=== PATIENT | female | born 1940 | race Caucasian/White ===

== ENCOUNTER → 2020-06-26 14:55 | Outpatient (CLI) | payer MEDICARE, SELFPAY ==
--- NOTE | ~2020-06-26 | MM_ITS ---
EXAMINATION: MM screening triny BI w petey HISTORY: Screening TECHNIQUE: Craniocaudal and mediolateral oblique 3-D tomosynthesis images were obtained and synthetic 2-D images were generated. CAD analysis was submitted and interpreted. COMPARISON: Comparison to multiple prior studies sequentially, with oldest reviewed study dated 07/11. BREAST PARENCHYMAL COMPOSITION: There are scattered areas of fibroglandular density. FINDINGS: There is no evidence of suspicious mass, calcification, or architectural distortion to sugg est malignancy in either breast. There has been no suspicious interval change. IMPRESSION: 1. No mammographic evidence of malignancy. 2. Recommend routine screening mammography in one year. BI-RADS Category 1: Negative Reviewed, dictated and finalized at location A.
== END ==
PROVIDERS: PCP Internal Medicine; Visit Provider Internal Medicine
DX: Z12.31 Encounter for screening mammogram for malignant neoplasm of breast (principal)
CPT/HCPCS: 77063; 77067

== ENCOUNTER → 2021-09-13 08:10 | Outpatient (CLI) | payer MEDICARE, SELFPAY ==
--- NOTE | ~2021-09-13 | XR_ITS ---
EXAMINATION: XR chest 2V 09/13/2021 08:25 INDICATION: Cough for year PROCEDURE: 2 view chest COMPARISON: 12/04/2018 FINDINGS: The lungs are clear. The cardiomediastinal silhouette is within normal limits. There are no pleural effusions. There is no pneumothorax suspected. The lungs are hyperinflated which is cons istent with, but not diagnostic of chronic obstructive pulmonary disease. IMPRESSION: 1: NO ACUTE CARDIOPULMONARY DISEASE. Reviewed, dictated and finalized at location A.
== END ==
PROVIDERS: PCP Internal Medicine; Visit Provider Internal Medicine
DX: R05.9 Cough, unspecified (principal)
CPT/HCPCS: 71046

== ENCOUNTER → 2021-10-29 10:37 | Outpatient (CLI) | payer MEDICARE, SELFPAY ==
--- NOTE | ~2021-10-29 | MM_ITS ---
EXAMINATION: MM screening [facility] BI w petey HISTORY: Screening mammogram TECHNIQUE: Craniocaudal and mediolateral oblique 3-D tomosynthesis images were obtained and synthetic 2-D images were generated. CAD analysis was submitted and interpreted. COMPARISON: 06/26/2020, 01/02/2019, 10/16/2017 BREAST PARENCHYMAL COMPOSITION: There are scattered areas of fibroglandular density. FINDINGS: There is no evidence of suspicious mass, calcification, or architectural distortion to sugg est malignancy in either breast. There has been no suspicious interval change. IMPRESSION: 1. No mammographic evidence of malignancy. 2. Recommend routine screening mammography in one year. BI-RADS Category 1: Negative Reviewed, dictated and finalized at location A.
== END ==
PROVIDERS: PCP Internal Medicine; Visit Provider Internal Medicine
DX: Z12.31 Encounter for screening mammogram for malignant neoplasm of breast (principal)
CPT/HCPCS: 77063; 77067

== ENCOUNTER → 2022-05-20 12:27 | Outpatient (CLI) | payer MEDICARE, SELFPAY ==
--- NOTE | ~2022-05-20 | DEXA_ITS ---
Bone Density Report Name: KARTHIK YOUSSEF Age: 82 Sex: Female Ethnicity: White Date of : 1940 Indication: postmenopausal; screening for osteoporosis; rheumatoid arthritis; Referring Provider: CHRISTOS, DEIDRE Study: Bone densitometry was performed. Exam Date: May 20, 2022 Accession number: [id number] Bone Density: Region BMD T-score Z-score Classification AP Spine (L1, L2, L3) 0.868 -1.4 1.4 Osteopenia Femoral Neck (Left) 0.715 -1.2 1.2 Osteopenia Total Hip (Left) 0.817 -1.0 1.2 Normal Femoral Neck (Right) 0.643 -1.9 0.6 Osteopenia Total Hip (Right) 0.816 -1.0 1.2 Normal Total Hip Mean 0.816 -1.0 1.2 Normal World Health Organization criteria for BMD impression classify patients as: Normal (T-score at or above -1.0), Osteopenia (T-score between -1.0 and -2.5), or Osteoporosis (T-score at or below -2.5). 10-year Fracture Risk: FRAX not reported because: Treated for osteoporosis Clinical Information Provided by Patient: Has rheumatoid arthritis Is being treated for osteoporosis Has used the following medications: Fosamax (i.e. alendronate), Vitamin D, Calcium, LEVOTHYROXINE Patient maximum height was 60.0 Menopause Age: 59 Drinks caffeinated beverages Onset of menses at age 15 Number of children 3 Impression: The patient has low bone mass, based on the Right Femoral Neck T-score. Discussion: It is important to ask patients whether they are taking their medications and to encourage continued and appropriate compliance with their osteoporosis therapies to reduce fracture risk. It is also important to review their risk factors and encourage appropriate calcium and vitamin D intakes, exercise, fall prevention and other lifestyle measures. Follow-Up: Consider a repeat BMD and Vertebral Fracture Assessment (VFA) exam in 2 years or sooner if medically necessary, to reassess this patient's status. Reported by: KAMILLE on 05/20/2022 1:41:00 PM. Reviewed, dictated and finalized at location A. YESSI
== END ==
PROVIDERS: PCP Internal Medicine; Visit Provider Internal Medicine
DX: M81.0 Age-related osteoporosis without current pathological fracture (principal); M85.88 Other specified disorders of bone density and structure, other site; M85.852 Other specified disorders of bone density and structure, left thigh; M85.851 Other specified disorders of bone density and structure, right thigh
CPT/HCPCS: 77080

== ENCOUNTER → 2023-04-26 10:21 | Outpatient (CLI) | payer MEDICARE, SELFPAY ==
--- NOTE | ~2023-04-26 | XR_ITS ---
EXAMINATION: XR lumbar spine 2-3V DATE: 04/26/2023 10:44 INDICATION: Chronic back pain. TECHNIQUE: 3 views of lumbar spine were obtained. COMPARISON: Lumbar spine radiographs 03/05/2014 FINDINGS: There is 16 degrees levoscoliosis of thoracolumbar spine. Vertebral body heights are normal . There is mildly decreased disc height at L1-L2, moderately decreased disc height at L2-L3, severely decreased disc height at L3-L4, and moderately decreased disc height at L5-S1. 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 IMPRESSION: 1. Severe lumbar spondylosis, worsened from 03/05/2014. 2. Thoracolumbar levoscoliosis. Reviewed, dictated and finalized at location E. E MINER
--- NOTE | ~2023-04-26 | XR_ITS ---
AP and lateral views of the right hip Clinical history: Pain Findings: No acute fracture or dislocation is seen. Osseous alignment is anatomic. The right hip join t space is preserved. Soft tissues are unremarkable. Impression: No significant abnormality is seen. Reviewed, dictated and finalized at location . TZ MINER Impression: No significant abnormality is seen.
== END ==
PROVIDERS: PCP Internal Medicine; Visit Provider Internal Medicine
DX: M43.06 Spondylolysis, lumbar region (principal); M41.85 Other forms of scoliosis, thoracolumbar region; G89.29 Other chronic pain
CPT/HCPCS: 72100; 73502

== ENCOUNTER 2024-08-12 13:26 | Emergency (ER) | payer MEDICARE, SELFPAY ==
--- NOTE | 2024-08-12 13:31 | ED.FALL ---
HPI - Fall General Chief Complaint: Fall Stated Complaint: fall/head injury Time Seen by Provider: 08/12/24 13:30 Source: patient Mode of arrival: ambulatory Limitations: no limitations History of Present Illness HPI Narrative: Patient is an 84-year-old female who presents with fall and head injury. Patient states she was holding a gal of water when she lost her balance and fell backwards hitting her butt and then her head on the concrete floor of the garage. Patient states she feels an indentation on the back of her head. Denies any vision changes, loss of consciousness, numbness, tingling or weakness to extremities. Patient is not on a blood thinner only an aspirin. Patient has no retrograde amnesia, vomiting, raccoon eyes or bleeding from nose. Related Data Home Medications ?Medication ?Instructions ?Recorded ?Confirmed ?Last Taken ?Type alendronate 70 mg tablet mg PO 08/12/24 Unknown History amlodipine 5 mg tablet mg 08/12/24 Unknown History aspirin 81 mg tablet,delayed 81 mg PO DAILY 08/12/24 Unknown History release (Adult Low Dose Aspirin) atorvastatin 40 mg tablet mg 08/12/24 Unknown History folic acid 1 mg tablet 08/12/24 Unknown History hydroxychloroquine 200 mg tablet mg PO 08/12/24 Unknown History levothyroxine 88 mcg tablet mcg 08/12/24 Unknown History losartan 100 mg tablet mg 08/12/24 Unknown History methotrexate sodium 2.5 mg tablet mg 08/12/24 Unknown History Allergies Allergy/AdvReac Type Severity Reaction Status Date / Time No Known Allergies Allergy Unverified 08/12/24 13:41 Review of Systems Review of Systems: All systems reviewed & are unremarkable except as noted in HPI and below Constitutional: Constitutional: Denies body ache(s), Denies chills, Denies fatigue, Denies fever(s), Denies headache(s), Denies malaise and Denies weakness Eyes: Eyes: Denies blurry vision, Denies irritation and Denies loss of vision ENT: Denies otalgia, Denies headache(s), Denies nasal discharge, Denies sinus pain and Denies sore throat Cardiovascular: Cardiovascular: Denies chest pain, Denies irregular heart rhythm and Denies dyspnea Respiratory: Respiratory: Denies dyspnea Gastrointestinal: Gastrointestinal: Denies abdominal pain, Denies melena, Denies hematochezia, Denies diarrhea, Denies nausea and Denies vomiting Musculoskeletal: Musculoskeletal: Denies back pain, Denies myalgias, Denies arthralgias and Reports other (skull indentation) Integumentary/Breasts: Skin/Breast: Denies pruritus and Denies rash Neurologic: Denies headache(s), Denies loss of vision and Denies weakness Psychiatric: Psychiatric: Reports no additional psychiatric complaints Endocrine: Endocrine: Denies fatigue PMFSH Comments At time of signature, agree with nursing past medical, surgical, social and family history. There is no relevant family history pertinent to the presenting complaint. Exam Const: General: cooperative, healthy appearing, comfortable, no acute distress and well nourished Nutritional Appearance: well nourished Orientation/consciousness: patient oriented x3 Limitations: no limitations HENMT: Head: normocephalic, palpable skull fracture left parietal, no raccoon eyes, scalp tenderness and No periorbital ecchymosis Head images:  1. roughly 3 cm circular area of indentation and pain on palpation. Are is soft and sunken in. Ears: hearing grossly normal bilaterally, external ears normal and TM's normal bilaterally Face/Nose/Sinus: Normal external nose present, Normal nares present, Normal nasal mucous membranes and turbinates present, normal facial exam and face symmetric Face and sinus: normal facial exam and face symmetric Mouth: Yes lip normal Eyes: General: appearance normal, both eyes and all related structures Alignment and Position: alignment normal and position normal Periorbital: periorbital findings normal Eyelids: eyelids normal Pupils: Equal, round and reactive pupils present EOM: EOMs intact bilaterally Neck: Neck: normal visual inspection, full ROM and supple Chest: Chest palpation & inspection: normal inspection of the chest Resp: Effort & Inspection: normal respiratory effort and able to speak in complete sentences Auscultation: clear to auscultation bilaterally Cardio: Rate: regular rate Rhythm: regular rhythm Heart sounds: S1 normal heart sound present and S2 normal heart sound present GI: Inspection: normal to inspection Skin: General skin exam: normal color and no rashes or lesions noted Neuro: General: patient oriented x3 and moves all extremities Cranial nerves: Yes Equal, round and reactive pupils present Cognition (Neuro): normal cognition Speech: normal speech Gait exam (Neuro): Normal gait present Motor exam (neuro): 5/5 motor strength present throughout, Normal motor muscle tone present throughout and Motor abnormalities not present Sensory Exam: normal sensation Extrem: General: normal to inspection, full ROM and no edema Psych: Appearance: grossly normal and well kempt Mental Status: mental status grossly normal Speech and movement: Normal speech and movement present Affect: normal affect Attitude: cooperative Thought process: Normal thought process present Course Course Emergency Course: Patient being transferred to [facility] for further workup and evaluation. Patient requiring head CT due to mechanism of action, physical exam and age. Portions of this record may have been created with voice recognition software Level of Care: Express Care Visit Vital Signs Vital signs: Vital Signs Temperature 36.8 C 08/12/24 13:36 Pulse Rate 83 08/12/24 13:36 Respiratory Rate 16 08/12/24 13:36 Blood Pressure 156/61 H 08/12/24 13:36 Pulse Oximetry 100 08/12/24 13:36 Temperature 36.8 C 08/12/24 13:36 Pulse Rate 83 08/12/24 13:36 Respiratory Rate 16 08/12/24 13:36 Blood Pressure 156/61 H 08/12/24 13:36 Pulse Oximetry 100 08/12/24 13:36 Reviewed Transfer Transfered to: [facility] Transportation: Other (Private auto, family driving) Transfer rationale: Patient being transferred to [facility] for further workup and evaluation. Patient requiring head CT due to mechanism of action, physical exam and age. Accepting physician: Marie POMPA - Fall MDM Narrative Medical decision making narrative: Patient being transferred to [facility] for further workup and evaluation. Patient requiring head CT due to mechanism of action, physical exam and age. Differential Diagnosis Differential diagnosis: Likely compression fracture, concussion without loss of consciousness and other (Skull fracture) Discharge Plan Discharge Clinical Impression: Fall, Head injury Patient Disposition: Acute Care Hospital Condition: Stable Patient Language: Belarusian Prescriptions: No Action atorvastatin 40 mg tablet alendronate 70 mg tablet PO amlodipine 5 mg tablet levothyroxine 88 mcg tablet methotrexate sodium 2.5 mg tablet folic acid 1 mg tablet hydroxychloroquine 200 mg tablet PO losartan 100 mg tablet aspirin [Adult Low Dose Aspirin] 81 mg tablet,delayed release (DR/EC) 81 mg PO DAILY Follow-up/Referrals: King,MD Sony [Primary Care Provider] - Time of Disposition: 14:04
[2024-08-12 13:36] VITALS: BP 156/61; PULSE 83; RESP 16; TEMP 36.8; O2SAT 100
== END 2024-08-12 13:52 | disposition short-term general hospital (02) ==
LOC: EXPCOLL 13:30
PROVIDERS: Emergency Provider Nurse Practitioner Family; PCP Internal Medicine
DX: S09.90XA Unspecified injury of head, initial encounter (principal); W19.XXXA Unspecified fall, initial encounter; I10 Essential (primary) hypertension; E78.00 Pure hypercholesterolemia, unspecified; M06.9 Rheumatoid arthritis, unspecified; E03.9 Hypothyroidism, unspecified
CPT/HCPCS: 99212; G0463

== ENCOUNTER 2024-11-12 13:06 | Outpatient (CLI) | payer MEDICARE, SELFPAY ==
--- NOTE | ~2024-11-12 | DEXA_ITS ---
Bone Density Report Name: KARTHIK YOUSSEF Age: 84 Sex: Female Ethnicity: White Date of : 1940 Indication: monitoring treatment; parental hip fracture; rheumatoid arthritis; Referring Provider: CHRISTOS, DEIDRE Study: Bone densitometry was performed. Exam Date: November 12, 2024 Accession number: [id number] Bone Density: Region BMD T-score Z-score Classification AP Spine(L1-L4) 0.950 -0.9 2.0 Normal Femoral Neck (Left) 0.654 -1.8 0.8 Osteopenia Total Hip (Left) 0.790 -1.2 1.1 Osteopenia Femoral Neck (Right) 0.652 -1.8 0.7 Osteopenia Total Hip (Right) 0.792 -1.2 1.1 Osteopenia Total Hip Mean 0.791 -1.2 1.1 Osteopenia World Health Organization criteria for BMD impression classify patients as: Normal (T-score at or above -1.0), Osteopenia (T-score between -1.0 and -2.5), or Osteoporosis (T-score at or below -2.5). 10-year Fracture Risk: FRAX not reported because: Treated for osteoporosis Previous Exams: -- Region Exam Age BMD T-score BMD Change BMD Change Date g/cm2 vs Baseline vs Previous -- Total Hip(Left) 11/12/2024 84 0.790 -1.2 -3.2% -3.2% 05/20/2022 82 0.817 -1.0 Total Hip(Right) 11/12/2024 84 0.792 -1.2 -2.9% -2.9% 05/20/2022 82 0.816 -1.0 -- *Denotes significance at 95% confidence level, LSC for Total Hip = 0.027 g/cm2 Clinical Information Provided by Patient: Parent has had a hip fracture Has rheumatoid arthritis Is being treated for osteoporosis Has used the following medications: Fosamax (i.e. alendronate), Vitamin D, Calcium Patient maximum height was 60 Menopause Age: 59 No regular weight bearing exercise Drinks caffeinated beverages Onset of menses at age 15 Number of children 3 Impression: The patient has low bone mass, based on the Left Femoral Neck T-score. The patient has risk factors, including: parental hip fracture. No significant bone loss was observed. Discussion: PATIENT UNDER TREATMENT WITH NO SIGNIFICANT BMD LOSS SINCE LAST EXAM. In an untreated patient, BMD typically declines with age. A lack of decline or gain is usually a sign that treatment is efficacious and fracture risk is reduced. It is important to ask patients whether they are taking their medications and to encourage continued and appropriate compliance with their osteoporosis therapies to reduce fracture risk. It is also important to review their risk factors and encourage appropriate calcium and vitamin D intakes, exercise, fall prevention and other lifestyle measures. Follow-Up: Consider a repeat BMD and Vertebral Fracture Assessment (VFA) exam in 2 years or sooner if medically necessary, to reassess this patient's status. Reported by: SHEILA on 11/12/2024 1:49:00 PM. Reviewed, dictated and finalized at location A.
== END 2024-11-12 13:07 | disposition home or self-care (01) ==
LOC: MICIMG 13:07
PROVIDERS: PCP Internal Medicine; Visit Provider Internal Medicine
DX: M81.0 Age-related osteoporosis without current pathological fracture (principal)
CPT/HCPCS: 77080

== ENCOUNTER 2025-01-23 13:26 | Outpatient (CLI) | payer MEDICARE, SELFPAY ==
--- NOTE | ~2025-01-23 | MM_ITS ---
EXAMINATION: MM screening triny BI w petey HISTORY: Screening. TECHNIQUE: Craniocaudal and mediolateral oblique 3-D tomosynthesis images were obtained and synthetic 2-D images were generated. CAD analysis was submitted and interpreted. COMPARISON: 2021, 2020, and 2018. BREAST PARENCHYMAL COMPOSITION: Not Dense: There are scattered areas of fibroglandular FINDINGS: The exam is suboptimal because of difficulty with positioning the patient. No suspicious masses are seen. There are no suspicious calcifications. No unexplained architectural distortion is seen. There are no skin or nipple abnormalities identified. There is no adenopathy seen on the images submitted. IMPRESSION: No mammographic evidence to suggest malignancy is seen. The patient may return to screening mammography as per ACR guidelines. BI-RADS 1 - Negative. Reviewed, dictated and finalized at location C. [employer]
== END 2025-01-23 13:27 | disposition home or self-care (01) ==
LOC: MICIMG 13:27
PROVIDERS: PCP Internal Medicine; Visit Provider Internal Medicine
DX: Z12.31 Encounter for screening mammogram for malignant neoplasm of breast (principal)
CPT/HCPCS: 77063; 77067